=== PATIENT | female | born 1970 | race Two or more races ===

== ENCOUNTER 2021-08-19 11:29 | Emergency (ER) | payer SELFPAY ==
[~2021-08-19] VITALS: Ht 160 cm; Wt 88.6 kg
[~2021-08-19 11:29] MED LIST: CYAN100016 SL; FERR325T3 PO; INSU100V35 SQ; INSU100V8 SQ; LEVO25TA55 PO; METF10007 PO
[2021-08-19] MEDS ORDERED: IV NORMAL SALINE 1000ML BAG 1,000 ML IV ONE (12:00)
[2021-08-19] MEDS ORDERED: ONDANSETRON PF 4 MG/2 ML VIAL. IVP ONE (12:00)
[2021-08-19] MEDS ORDERED: MORPHINE SULFATE 4 MG/ML INJ. IVP ONE (12:00)
[2021-08-19 12:24] LABS: BASO # 0.1 x10^3/uL (0.0-0.2); BASO % 1 % (0-3); EOS % 0 % (0-3); HEMATOCRIT 42.1 % (36.0-47.0); HEMOGLOBIN 13.7 g/dL (12.0-15.5); LYMPH % 6 % (24-48); MEAN CORPUSCULAR HEMOGLOBIN 27 pg (25-35); MEAN CORPUSCULAR HGB CONC 33 g/dL (31-37); MEAN CORPUSCULAR VOLUME 82 fL (79-100); MONO # 0.7 x10^3/uL (0.0-1.1); MONO % 4 % (0-9); NEUT # 16.4 x10^3/uL (1.8-7.7); NEUT % 90 % (31-73); PLATELET COUNT 291 x10^3/uL (140-400); RED BLOOD COUNT 5.12 x10^6/uL (3.50-5.40); RED CELL DISTRIBUTION WIDTH 14.5 % (11.5-14.5); WHITE BLOOD COUNT 18.2 x10^3/uL (4.0-11.0)
[2021-08-19 12:33] LABS: CALCIUM 9.2 mg/dL (8.5-10.1); CREATININE 0.9 mg/dL (0.6-1.0); POTASSIUM 4.2 mmol/L (3.5-5.1)
[2021-08-19] MEDS ORDERED: CONTRAST GIVEN. MC PRN (12:45)
[2021-08-19] MEDS ORDERED: IOHEXOL 300 MG/ML 100ML VIAL. IV ONE (12:45)
[2021-08-19 12:48] LABS: ALBUMIN 3.8 g/dL (3.4-5.0); ALBUMIN/GLOBULIN RATIO 0.8 (1.0-1.7); TOTAL BILIRUBIN 0.4 mg/dL (0.2-1.0); TOTAL PROTEIN 8.6 g/dL (6.4-8.2)
[2021-08-19 12:52] LABS: % BANDS 21 % (0-9); % BASOS 1 % (0-3); % LYMPHS 4 % (24-48); % MONOS 1 % (0-10); % SEGS 73 % (35-66); PLT ESTIMATE ADEQUATE (ADEQUATE); TOXIC VACUOLATION PRESENT
--- NOTE | 2021-08-19 13:17 | RAD ---
PQRS Compliance Statement: One or more of the following individualized dose reduction techniques were utilized for this examinat ion: 1. Automated exposure control 2. Adjustment of the mA and/or kV according to patient size 3. Use of iterative reconstruction technique CT ABDOMEN+PELVIS W Clinical Indication: Reason: RLQ pain / Spl. Instructions: omni 300 75ml / History: Comparison: CT abdomen and pelvis without contrast November 11, 2020. Technique: Helical CT imaging of the abdomen and pelvis is performed after 75 cc of Omnipaque 300 IV contrast. Oral contrast not administered. Findings: Lung bases are clear. Cardiac size normal. Tiny hypodensity in the right hepatic lobe, too small to further characterize, image 18. There is hep atomegaly versus normal variant Vicente lobe. The gallbladder, spleen, pancreas, adrenal glands, abdom inal aorta, and kidneys are normal. Small right renal cyst does not occur follow-up. The stomach is unremarkable. No evidence of small bowel obstruction. Appendectomy. No colon wall thic kening is identified. No abdominal adenopathy or free fluid. Induration of the subcutaneous fat of th e periumbilical ventral abdominal wall, similar to prior study. The urinary bladder is normal. Uterus is unremarkable. No pelvic free fluid. Multilevel Schmorl's nodes of the thoracolumbar spine. IMPRESSION: No acute abdominal or pelvic adenopathy. Electronically signed by: Joey Cohen MD (08/19/2021 1:15 PM) [id number]
[2021-08-19 14:37] LABS: BILIRUBIN,URINE NEGATIVE (NEG); CLARITY,URINE HAZY; COLOR,URINE YELLOW
[2021-08-19 14:38] LABS: NITRITE,URINE NEGATIVE (NEG); PH,URINE 6.5 (<5.0-8.0); PROTEIN,URINE NEGATIVE (NEG-TRACE); UROBILINOGEN,URINE 0.2 mg/dL (0.2 mg/dL)
[2021-08-19 14:39] LABS: BACTERIA,URINE FEW /HPF (0-FEW); WBC,URINE 20-40 /HPF (0-4)
[2021-08-19 14:45] LABS: INFLUENZA A PATIENT NEGATIVE (NEGATIVE); INFLUENZA B PATIENT NEGATIVE (NEGATIVE)
[2021-08-19] MEDS ORDERED: KETOROLAC 30 MG/ML VIAL. IV ONE (15:45)
[2021-08-19] MEDS ORDERED: cefTRIAXone IV Push 1 GM VIAL. IVP ONE (15:45)
[2021-08-19] MEDS ORDERED: KETO10TA PO (16:32)
[2021-08-19] MEDS ORDERED: AMOX1TAB11 PO (16:32)
--- NOTE | 2021-08-19 16:32 | PHYS DOC ---
Past Medical History Past Medical History: Diabetes-Type II, High Cholesterol, Hypertension Additional Past Medical Histor: migraine, kidney stones Past Surgical History: Tubal ligation Smoking Status: Never Smoker Alcohol Use: None Drug Use: None Adult General Chief Complaint Chief Complaint: ABDOMINAL PAIN HPI HPI Patient is a 50 year old female with right lower quadrant pain has been present for the last couple weeks and gradually getting worse. She has been nauseated but has not had vomiting. She has subjectively had a fever at home and her temps 100.7 here. Patient had her appendix taken out about 9 months ago and states that the pain feels similar to when she had appendicitis. She has not had any blood in her urine but has had some increase in urination. No cough, chest pain or shortness of breath. Review of Systems Review of Systems Constitutional: Reports fever Eyes: Denies change in visual acuity or eye pain HENT: Denies sore throat Respiratory: Denies shortness of breath Cardiovascular: Denies chest pain GI: Reports right lower quadrant abdominal pain : Denies hematuria Musculoskeletal: Denies back or extremity injury Integument: Denies rash or skin lesions Neurologic: Denies headache, focal weakness or sensory changes All other systems were reviewed and found to be within normal limits, except as documented in this note. Current Medications Current Medications Current Medications Medications (Trade) Dose Ordered Sig/Alice Start Time Stop Time Status Last Admin Dose Admin Ceftriaxone Sodium (Rocephin) 1 gm 1X ONCE 08/19/21 15:45 08/19/21 15:46 DC 08/19/21 16:06 1 GM Info (CONTRAST GIVEN -- Rx MONITORING) 1 each PRN DAILY PRN 08/19/21 12:45 08/21/21 12:44 Iohexol (Omnipaque 300 Mg/ml) 75 ml 1X ONCE 08/19/21 12:45 08/19/21 12:46 DC Ketorolac Tromethamine (Toradol 30mg Vial) 30 mg 1X ONCE 08/19/21 15:45 08/19/21 15:46 DC 08/19/21 16:06 30 MG Morphine Sulfate (Morphine Sulfate) 4 mg 1X ONCE 08/19/21 12:00 08/19/21 12:01 DC 08/19/21 12:21 4 MG Ondansetron HCl (Zofran) 4 mg 1X ONCE 08/19/21 12:00 08/19/21 12:01 DC 08/19/21 12:20 4 MG Sodium Chloride 1,000 ml @ 1,000 mls/hr 1X ONCE 08/19/21 12:00 08/19/21 12:59 DC 08/19/21 12:20 1,000 MLS/HR Allergies Allergies Allergies Coded Allergies Type Severity Reaction Last Updated Verified No Known Drug Allergies 07/01/13 No Physical Exam Physical Exam Constitutional: Well developed, well nourished, no acute distress, non-toxic appearance. HENT: Normocephalic, atraumatic, bilateral external ears normal, mucosa moist, nose normal. Eyes: EOMI, conjunctiva normal, no discharge. Neck: Normal range of motion, supple, no stridor, no meningeal signs. Cardiovascular: Regular rate and rhythm Lungs & Thorax: Bilateral breath sounds clear to auscultation Abdomen: Soft, right lower quadrant and suprapubic plus periumbilical tenderness, no obvious masses Skin: Warm, dry, no erythema, no rash. Extremities: No tenderness, no cyanosis, no clubbing, ROM intact, no edema. Neurologic: Alert and oriented, normal motor function, normal sensory function, no focal deficits noted. Psychologic: Affect normal, judgement normal, mood normal. Current Patient Data Vital Signs Vital Signs Date Time Temp Pulse Resp B/P (MAP) Pulse Ox O2 Delivery O2 Flow Rate FiO2 08/19/21 12:21 16 96 Room Air 08/19/21 11:35 100.6 127 124/74 (91) 100.6 Lab Values Laboratory Tests Test 08/19/21 12:10 08/19/21 14:10 08/19/21 14:15 White Blood Count 18.2 x10^3/uL (4.0-11.0) H Red Blood Count 5.12 x10^6/uL (3.50-5.40) Hemoglobin 13.7 g/dL (12.0-15.5) Hematocrit 42.1 % (36.0-47.0) Mean Corpuscular Volume 82 fL (79-100) Mean Corpuscular Hemoglobin 27 pg (25-35) Mean Corpuscular Hemoglobin Concent 33 g/dL (31-37) Red Cell Distribution Width 14.5 % (11.5-14.5) Platelet Count 291 x10^3/uL (140-400) Neutrophils (%) (Auto) 90 % (31-73) H Lymphocytes (%) (Auto) 6 % (24-48) L Monocytes (%) (Auto) 4 % (0-9) Eosinophils (%) (Auto) 0 % (0-3) Basophils (%) (Auto) 1 % (0-3) Neutrophils # (Auto) 16.4 x10^3/uL (1.8-7.7) H Lymphocytes # (Auto) 1.0 x10^3/uL (1.0-4.8) Monocytes # (Auto) 0.7 x10^3/uL (0.0-1.1) Eosinophils # (Auto) 0.0 x10^3/uL (0.0-0.7) Basophils # (Auto) 0.1 x10^3/uL (0.0-0.2) Segmented Neutrophils % 73 % (35-66) H Band Neutrophils % 21 % (0-9) H Lymphocytes % 4 % (24-48) L Monocytes % 1 % (0-10) Basophils % 1 % (0-3) Toxic Vacuolation Present Platelet Estimate Adequate (ADEQUATE) Sodium Level 137 mmol/L (136-145) Potassium Level 4.2 mmol/L (3.5-5.1) Chloride Level 99 mmol/L (98-107) Carbon Dioxide Level 25 mmol/L (21-32) Anion Gap 13 (6-14) Blood Urea Nitrogen 14 mg/dL (7-20) Creatinine 0.9 mg/dL (0.6-1.0) Estimated GFR (Cockcroft-Gault) 66.0 BUN/Creatinine Ratio 16 (6-20) Glucose Level 220 mg/dL (70-99) H Lactic Acid Level 1.1 mmol/L (0.4-2.0) Calcium Level 9.2 mg/dL (8.5-10.1) Total Bilirubin 0.4 mg/dL (0.2-1.0) Aspartate Amino Transferase (AST) 22 U/L (15-37) Alanine Aminotransferase (ALT) 22 U/L (14-59) Alkaline Phosphatase 136 U/L (46-116) H Total Protein 8.6 g/dL (6.4-8.2) H Albumin 3.8 g/dL (3.4-5.0) Albumin/Globulin Ratio 0.8 (1.0-1.7) L Lipase 118 U/L (73-393) Urine Collection Type Unknown Urine Color Yellow Urine Clarity Hazy Urine pH 6.5 (<5.0-8.0) Urine Specific [place] <=1.005 (1.000-1.030) Urine Protein Negative mg/dL (NEG-TRACE) Urine Glucose (UA) 500 mg/dL (NEG) Urine Ketones (Stick) >160 mg/dL (NEG) Urine Blood Moderate (NEG) Urine Nitrite Negative (NEG) Urine Bilirubin Negative (NEG) Urine Urobilinogen Dipstick 0.2 mg/dL (0.2 mg/dL) Urine Leukocyte Esterase Trace (NEG) Urine RBC 3-5 /HPF (0-2) Urine WBC 20-40 /HPF (0-4) Urine Squamous Epithelial Cells Few /LPF Urine Bacteria Few /HPF (0-FEW) Influenza Type A Antigen Negative (NEGATIVE) Influenza Type B Antigen Negative (NEGATIVE) SARS-CoV-2 Antigen (Rapid) Negative (NEGATIVE) Laboratory Tests 08/19/21 12:10 Laboratory Tests 08/19/21 12:10 EKG EKG [] Radiology/Procedures Radiology/Procedures [] Impressions: PATIENT: CHANDRA FELIZACCOUNT: [id number] : 1970 LOCATION: ER AGE: 50 SEX: F EXAM STATUS: REG ER ORD. PHYSICIAN: KE CARSON MD REASON: RLQ pain PROCEDURE: CT ABD PELV W/ IV CONTRST ONLY PQRS Compliance Statement: One or more of the following individualized dose reduction techniques were utilized for this examination: 1. Automated exposure control 2. Adjustment of the mA and/or kV according to patient size 3. Use of iterative reconstruction technique CT ABDOMEN+PELVIS W Clinical Indication: Reason: RLQ pain / Spl. Instructions: omni 300 75ml / History: Comparison: CT abdomen and pelvis without contrast November 11, 2020. Technique: Helical CT imaging of the abdomen and pelvis is performed after 75 cc of Omnipaque 300 IV contrast. Oral contrast not administered. Findings: Lung bases are clear. Cardiac size normal. Tiny hypodensity in the right hepatic lobe, too small to further characterize, image 18. There is hepatomegaly versus normal variant Vicente lobe. The gallbladder, spleen, pancreas, adrenal glands, abdominal aorta, and kidneys are normal. Small right renal cyst does not occur follow-up. The stomach is unremarkable. No evidence of small bowel obstruction. Appendectomy. No colon wall thickening is identified. No abdominal adenopathy or free fluid. Induration of the subcutaneous fat of the periumbilical ventral abdominal wall, similar to prior study. The urinary bladder is normal. Uterus is unremarkable. No pelvic free fluid. Multilevel Schmorl's nodes of the thoracolumbar spine. IMPRESSION: No acute abdominal or pelvic adenopathy. Electronically signed by: Joey Beltrán MD (08/19/2021 1:15 PM) [id number] DICTATED and SIGNED BY: JOEY BELTRÁN MD DATE: 08/19/21 [id number] 0 Course & Med Decision Making Course & Med Decision Making Pertinent Labs and Imaging studies reviewed. (See chart for details) [] This 50-year-old female with right lower quadrant discomfort and fever. White count was 18.1. CT of the abdomen pelvis was negative though for any acute pathology. Urine had some white cells in it and symptoms are consistent with a pyelonephritis. She was given ceftriaxone and Toradol with improvement in her symptoms. She was also given a liter of normal saline. Will discharge with prescriptions for Augmentin and Toradol tabs, have her follow-up with her primary care physician in a few days if symptoms are not improving, return to the emergency department if they become worse or other concerns arise, she is stable for discharge at this time Dragon Disclaimer Dragon Disclaimer This electronic medical record was generated, in whole or in part, using a voice recognition dictation system. Departure Departure Impression: Primary Impression: Pyelonephritis Disposition: HOME / SELF CARE / HOMELESS Condition: STABLE Referrals: NO PCP (PCP) Patient Instructions: Pyelonephritis, Adult Scripts Ketorolac Tromethamine (KETOROLAC TROMETHAMINE) 10 Mg Tablet 1 TAB PO PRN Q6HRS PRN for PAIN for 7 Days, #10 TAB Prov: KE CARSON MD 08/19/21 Amoxicillin/Potassium Clav (AMOX TR-K CLV 875-125 MG TAB) 1 Each Tablet 1 TAB PO BID, #20 TAB Prov: KE CARSON MD 08/19/21 KE CARSON MD Aug 19, 2021 16:32
[2021-08-19 16:50] VITALS: BP 103/62
== END 2021-08-19 16:55 | disposition home or self-care (01) ==
LOC: ER 11:29
DX: N12 Tubulo-interstitial nephritis, not specified as acute or chronic (principal); E11.9 Type 2 diabetes mellitus without complications; E78.00 Pure hypercholesterolemia, unspecified; I10 Essential (primary) hypertension; G43.909 Migraine, unspecified, not intractable, without status migrainosus; Z98.51 Tubal ligation status
CPT/HCPCS: 36415; 74177; 80053; 81001; 83605; 83690; 85007; 85025; 87086; 87428; 96361; 96374; 96375; 99285; J0696; J1885; J2270; J2405; J7030; 87077; 87186